=== PATIENT | female | born 2000 | race Caucasian/White ===

== ENCOUNTER 2022-11-10 19:31 | Emergency (ER) | payer SELFPAY ==
[~2022-11-10] VITALS: Ht 160 cm; Wt 60.3 kg
[2022-11-10 19:35] VITALS: BP 96/63; PULSE 123; RESP 18; TEMP 97.6; O2SAT 98
--- NOTE | 2022-11-10 19:35 | NUR ---
TO BED AMBULATORY
--- NOTE | 2022-11-10 20:00 | NUR ---
22 y/o F from home, c/o epigastric pain associated with N&V and diarrhea since am. Denies fever, dysuria, hematuria. Denies medical hx. Allergies: NKDA
[2022-11-10] MEDS ORDERED: DICYCLOMINE HCL LIQUID 10 MG/5 ML UDC PO ONE (20:05)
[2022-11-10] MEDS ORDERED: ONDANSETRON 4 MG/2 ML VIAL IVP ONE (20:05)
[2022-11-10 20:59] LABS: HEMATOCRIT 42.6 % (36-48); HEMOGLOBIN 14.9 g/dL (12.0-16.0); MEAN CORPUSCULAR HEMOGLOBIN 31 pg (27-31); MEAN CORPUSCULAR HGB CONC 35 g/dL (33-37); PLATELET COUNT (AUTO) 236 K/uL (140-450); RED BLOOD CELL COUNT(AUTO) 4.73 MIL/uL (4.20-5.40); RED CELL DISTRIBUTION WIDTH 12.3 % (11.6-13.7); WHITE BLOOD COUNT (AUTO) 16.3 K/uL (4.5-11.0)
[2022-11-10] MEDS ORDERED: NACL 0.9% 1,000 ML IV ONE (21:20)
[2022-11-10 21:24] LABS: ALBUMIN 4.1 g/dL (3.4-5.0); ANION GAP 18.6 (8-16); CARBON DIOXIDE 21.3 mmol/L (21-32); CREATININE 0.9 mg/dL (0.6-1.3); POTASSIUM 3.9 mmol/L (3.5-5.1); TOTAL BILIRUBIN 1.4 mg/dL (0.0-1.0)
[2022-11-10 21:45] LABS: BASOPHILS % (MANUAL) 0 % (0-2); EOSINOPHILS % (MANUAL) 1 % (0-4); LYMPHOCYTES % (MANUAL) 4 % (20-46); METAMYELOCYTES % 4 % (0-0); MONOCYTES % (MANUAL) 4 % (5-12); MYELOCYTES % 2 % (0-0)
[2022-11-10] MEDS ORDERED: BEN10 PO (22:02)
[2022-11-10] MEDS ORDERED: ONDA-188 SL (22:02)
[2022-11-10] MEDS ORDERED: KETOROLAC 30 MG/ML VIAL IVP ONE (22:10)
--- NOTE | 2022-11-10 22:30 | NUR ---
Urine collected; Urine dip rendered and reported to SULLY Smith.
[2022-11-10 22:53] VITALS: BP 99/59; PULSE 111; RESP 18; TEMP 97.6; O2SAT 98
--- NOTE | 2022-11-10 22:55 | NUR ---
Patient discharged with v/s stable. Written and verbal after care instructions given and explained. Patient alert, oriented and verbalized understanding of instructions. All questions addressed prior to discharge. ID band removed. Patient advised to follow up with PMD. Rx of Bentyl and Zofran sent to preferred pharmacy. Patient educated on indication of medication including possible reaction and side effects. Opportunity to ask questions provided and answered.
== END 2022-11-10 22:55 | disposition home or self-care (01) ==
LOC: MED 19:31
DX: K52.9 Noninfective gastroenteritis and colitis, unspecified (principal); Z79.899 Other long term (current) drug therapy
CPT/HCPCS: 36415; 80053; 81002; 81025; 83690; 85025; 96361; 96374; 96375; 99284; J1885; J2405; J7030

== ENCOUNTER 2022-11-13 13:33 | Emergency (ER) | payer SELFPAY ==
[~2022-11-13] VITALS: Ht 162.6 cm; Wt 63.5 kg
[~2022-11-13 13:33] MED LIST: BEN10 PO; ONDA-188 SL
[2022-11-13 14:01] VITALS: BP 110/62; PULSE 85; RESP 18; TEMP 97.6; O2SAT 98
[2022-11-13] MEDS ORDERED: PRED20TA5 PO (14:56)
[2022-11-13] MEDS ORDERED: HYD2.5O TP (15:08)
--- NOTE | 2022-11-13 15:14 | NUR ---
Patient discharged with v/s stable. Written and verbal after care instructions given and explained. Patient alert, oriented and verbalized understanding of instructions. Ambulatory with steady gait. All questions addressed prior to discharge. ID band removed. Patient advised to follow up with PMD. Rx of HYDROCORTISONE given. Patient educated on indication of medication including possible reaction and side effects. Opportunity to ask questions provided and answered.
== END 2022-11-13 15:14 | disposition home or self-care (01) ==
LOC: MED 13:33
DX: L30.9 Dermatitis, unspecified (principal); Z79.899 Other long term (current) drug therapy
CPT/HCPCS: 99282